=== PATIENT | female | born 1950 | race Native Hawaiian/Other Pacific Islander ===

== ENCOUNTER 2017-07-13 14:09 | Outpatient (CLI) | payer BC, OTHER ==
[~2017-07-13 14:09] MED LIST: AMLO2.5T PO; BYSTOLIC20 MG PO; CITA20TA2 PO; CRESTOR20 MG PO; HYDR25TA60 PO; PANT40TA PO; TIROSINT100 MCG PO
== END 2017-07-13 19:07 | disposition home or self-care (01) ==
LOC: MAMMO 14:09
DX: Z12.31 Encounter for screening mammogram for malignant neoplasm of breast (principal); Z13.820 Encounter for screening for osteoporosis; M85.89 Other specified disorders of bone density and structure, multiple sites

== ENCOUNTER 2017-07-16 09:58 | Outpatient (CLI) | payer BC, OTHER | END 2017-07-16 21:34 | disposition home or self-care (01) | LOC: MAMMO 09:58 | DX: R92.8 Other abnormal and inconclusive findings on diagnostic imaging of breast (principal) ==

== ENCOUNTER 2018-04-26 04:18 | Emergency (ER) | payer BC, OTHER ==
[~2018-04-26] VITALS: Ht 170.2 cm; Wt 77.1 kg
[2018-04-26 06:36] VITALS: BP 119/58; TEMP 97.9
== END 2018-04-26 06:38 | disposition home or self-care (01) ==
LOC: ED 04:18
DX: S20.212A Contusion of left front wall of thorax, initial encounter (principal); W17.89XA Other fall from one level to another, initial encounter; Y93.89 Activity, other specified; Y92.89 Other specified places as the place of occurrence of the external cause; S93.492A Sprain of other ligament of left ankle, initial encounter; S09.8XXA Other specified injuries of head, initial encounter
CPT/HCPCS: 99283; J1885

== ENCOUNTER 2018-05-05 14:41 | Outpatient (CLI) | payer BC, OTHER | END 2018-05-05 21:23 | disposition home or self-care (01) | LOC: RAD 14:41 | DX: R07.81 Pleurodynia (principal) ==

== ENCOUNTER 2018-08-23 15:29 | Outpatient (CLI) | payer BC, OTHER | END 2018-08-23 21:32 | disposition home or self-care (01) | LOC: US 15:29 | DX: H34.12 Central retinal artery occlusion, left eye (principal) ==

== ENCOUNTER 2018-11-30 05:40 | Emergency (ER) | payer BC, OTHER ==
[~2018-11-30] VITALS: Ht 170.2 cm; Wt 79.8 kg
[2018-11-30 05:55] VITALS: TEMP 97.7
[2018-11-30 07:03] LABS: PLATELET COUNT 150 K/uL (152-353)
[2018-11-30 07:14] LABS: POTASSIUM 4.1 mmol/L (3.6-5.2)
[2018-11-30 08:12] VITALS: BP 142/78
== END 2018-11-30 08:10 | disposition home or self-care (01) ==
LOC: ED 05:40
PROVIDERS: Internal Medicine
DX: R10.13 Epigastric pain (principal); R11.0 Nausea
CPT/HCPCS: 36415; 74022; 80053; 82150; 83690; 85027; 99283

== ENCOUNTER 2018-12-22 07:32 | Day surgery (SDC) | payer BC, OTHER | END 2018-12-22 13:13 | disposition home or self-care (01) | LOC: OR 07:32 | PROC: 0DB78ZZ Excision of Stomach, Pylorus, Via Natural or Artificial Opening Endoscopic (ICD-10-PCS; principal; 2018-12-22) | PROC: 0DBK8ZZ Excision of Ascending Colon, Via Natural or Artificial Opening Endoscopic (ICD-10-PCS; 2018-12-22) | PROC: 0DBL8ZZ Excision of Transverse Colon, Via Natural or Artificial Opening Endoscopic (ICD-10-PCS; 2018-12-22) | PROC: 0DBN8ZZ Excision of Sigmoid Colon, Via Natural or Artificial Opening Endoscopic (ICD-10-PCS; 2018-12-22) | DX: R10.84 Generalized abdominal pain (principal); K21.0 Gastro-esophageal reflux disease with esophagitis; K29.50 Unspecified chronic gastritis without bleeding; K29.80 Duodenitis without bleeding; Z80.0 Family history of malignant neoplasm of digestive organs; Z86.010 Personal history of colon polyps; K44.9 Diaphragmatic hernia without obstruction or gangrene; K25.9 Gastric ulcer, unspecified as acute or chronic, without hemorrhage or perforation; K31.7 Polyp of stomach and duodenum; K57.30 Diverticulosis of large intestine without perforation or abscess without bleeding; K63.5 Polyp of colon; D12.5 Benign neoplasm of sigmoid colon; D12.3 Benign neoplasm of transverse colon | CPT/HCPCS: J2001; J2250; J2405; J2704; J3010 ==

== ENCOUNTER 2019-01-10 14:27 | Outpatient (CLI) | payer BC, OTHER | END 2019-01-10 20:29 | disposition home or self-care (01) | LOC: MAMMO 14:27 | DX: Z12.31 Encounter for screening mammogram for malignant neoplasm of breast (principal) ==

== ENCOUNTER 2019-07-12 15:23 | Outpatient (CLI) | payer BC, OTHER | END 2019-07-12 23:33 | disposition home or self-care (01) | LOC: LABW 15:23 | PROVIDERS: Internal Medicine Cardiovascular Disease | DX: Z79.899 Other long term (current) drug therapy (principal) | CPT/HCPCS: 36415; 80048; 83880 ==

== ENCOUNTER 2019-10-10 14:44 | Outpatient (CLI) | payer BC, OTHER | END 2019-10-10 20:12 | disposition home or self-care (01) | LOC: RAD 14:44 | DX: M79.672 Pain in left foot (principal) ==

== ENCOUNTER 2020-02-29 08:38 | Outpatient (CLI) | payer BC, OTHER ==
[2020-02-29 09:05] LABS: POTASSIUM 4.3 mmol/L (3.6-5.2)
[2020-02-29 09:47] LABS: PLATELET COUNT 155 K/uL (152-353)
== END 2020-02-29 19:06 | disposition home or self-care (01) ==
LOC: LABW 08:38
PROVIDERS: Internal Medicine Cardiovascular Disease
DX: Z79.899 Other long term (current) drug therapy (principal); E78.49 Other hyperlipidemia
CPT/HCPCS: 36415; 80053; 80061; 85027

== ENCOUNTER 2020-05-20 12:18 | Emergency (ER) | payer OTHER ==
[~2020-05-20] VITALS: Ht 170.2 cm; Wt 81.6 kg
[2020-05-20 14:15] VITALS: BP 124/62; TEMP 98.5
== END 2020-05-20 14:15 | disposition home or self-care (01) ==
LOC: ED 12:18
DX: M79.18 Myalgia, other site (principal); W20.8XXA Other cause of strike by thrown, projected or falling object, initial encounter; Y92.218 Other school as the place of occurrence of the external cause
CPT/HCPCS: 99283

== ENCOUNTER 2020-06-24 14:34 | Outpatient (CLI) | payer BC, OTHER | END 2020-06-25 01:08 | disposition home or self-care (01) | LOC: RAD 14:34 | DX: M54.2 Cervicalgia (principal) ==

== ENCOUNTER 2020-07-20 08:59 | Emergency (ER) | payer BC, OTHER ==
[~2020-07-20] VITALS: Ht 170.2 cm; Wt 78.0 kg
[2020-07-20 09:07] VITALS: BP 141/66; TEMP 98.3
== END 2020-07-20 09:34 | disposition home or self-care (01) ==
LOC: ED 08:59
DX: K01.1 Impacted teeth (principal); K04.7 Periapical abscess without sinus
CPT/HCPCS: 99282

== ENCOUNTER 2020-07-30 14:06 | Outpatient (CLI) | payer BC, OTHER | END 2020-07-30 19:09 | disposition home or self-care (01) | LOC: MRI 14:06 | DX: M54.2 Cervicalgia (principal) ==

== ENCOUNTER 2020-08-27 14:52 | Outpatient (CLI) | payer BC, OTHER | END 2020-08-27 19:36 | disposition home or self-care (01) | LOC: US 14:52 | PROVIDERS: ATTEND Orthopaedic Surgery | DX: M54.2 Cervicalgia (principal); M62.838 Other muscle spasm; R22.1 Localized swelling, mass and lump, neck; R29.898 Other symptoms and signs involving the musculoskeletal system ==

== ENCOUNTER 2020-10-11 14:05 | Outpatient (CLI) | payer BC, OTHER | END 2020-10-11 20:00 | disposition home or self-care (01) | LOC: RAD 14:05 | PROVIDERS: ATTEND Registered Nurse | DX: M79.642 Pain in left hand (principal) ==

== ENCOUNTER 2020-10-23 14:17 | Outpatient (CLI) | payer BC, OTHER | END 2020-10-23 21:58 | disposition home or self-care (01) | LOC: MAMMO 14:17 | PROVIDERS: ATTEND Registered Nurse | DX: Z12.31 Encounter for screening mammogram for malignant neoplasm of breast (principal) ==

== ENCOUNTER 2023-06-10 07:54 | Outpatient (CLI) | payer OTHER ==
[2023-06-10 08:20] LABS: POTASSIUM 3.9 mmol/L (3.6-5.2)
== END 2023-06-10 19:10 | disposition home or self-care (01) ==
LOC: LABW 07:54
PROVIDERS: ATTEND Internal Medicine Cardiovascular Disease
DX: Z79.899 Other long term (current) drug therapy (principal); I50.9 Heart failure, unspecified
CPT/HCPCS: 36415; 80048; 83880

== ENCOUNTER 2023-11-03 13:55 | Outpatient (CLI) | payer OTHER | END 2023-11-03 19:06 | disposition home or self-care (01) | LOC: MAMMO 13:55 | PROVIDERS: ATTEND Nurse Practitioner Family | DX: Z12.31 Encounter for screening mammogram for malignant neoplasm of breast (principal) ==